=== PATIENT | male | born 1955 | race Caucasian/White ===

== ENCOUNTER → 2019-05-28 | Outpatient (REF) | payer BC ==
[2019-05-28 18:53] LABS: BASO % 0.6 % (0.0-1.0); EOS # 0.2 10^3/uL (0.0-0.50); EOS % 2.8 % (0.0-3.0); HEMATOCRIT 42.6 % (42.0-52.0); HEMOGLOBIN 13.8 g/dl (13.5-17.5); LYMPH # 0.9 10^3/uL (1.5-4.5); LYMPH % 14.4 % (24.0-44.0); MEAN CORPUSCULAR HEMOGLOBIN 32.3 pg (27.0-33.0); MEAN CORPUSCULAR HGB CONC 32.4 g/dl (32.0-36.5); MEAN CORPUSCULAR VOLUME 99.8 fl (80.0-96.0); MONO # 0.7 10^3/uL (0.0-0.8); MONO % 11.3 % (0.0-5.0); NEUTROPHILS # 4.4 10^3/uL (1.8-7.7); NEUTROPHILS % 70.7 % (36.0-66.0); RED BLOOD COUNT 4.27 10^6/uL (4.30-6.10); WHITE BLOOD COUNT 6.2 10^3/uL (4.0-10.0)
[2019-05-31 14:22] LABS: Lyme Disease IgG Ab 18 kDa Ban Present (.); Lyme Disease IgG Ab 23 kDa Ban Present (.); Lyme Disease IgG Ab 28 kDa Ban Absent (.); Lyme Disease IgG Ab 30 kDa Ban Absent (.); Lyme Disease IgG Ab 39 kDa Ban Absent (.); Lyme Disease IgG Ab 41 kDa Ban Present (.); Lyme Disease IgG Ab 45 kDa Ban Absent (.); Lyme Disease IgG Ab 58 kDa Ban Absent (.); Lyme Disease IgG Ab 66 kDa Ban Absent (.); Lyme Disease IgG Ab 93 kDa Ban Present (.); Lyme Disease IgG West Blot Int Negative (.); Lyme Disease IgG/IgM Antibodie 2.94 ISR (0.00-0.90); Lyme Disease IgM Ab 23 kDa Ban Present (.); Lyme Disease IgM Ab 39 kDa Ban Present (.); Lyme Disease IgM Ab 41 kDa Ban Present (.); Lyme Disease IgM Ab Quantitati 9.52 index (0.00-0.79); Lyme Disease IgM West Blot Int Positive (.)
== END ==
LOC: M SFHCLERA 11:56
PROVIDERS: ATTEND Physician Assistant
DX: R21 Rash and other nonspecific skin eruption (principal); R50.9 Fever, unspecified

== ENCOUNTER 2019-12-10 06:42 | Day surgery (SDC) | payer BC ==
[~2019-12-10] VITALS: Ht 172.7 cm; Wt 76.1 kg
[~2019-12-10 06:42] MED LIST: NS 1,000 ML IV ONE
--- NOTE | 2019-12-10 08:40 | ROOR ---
Patient Name: Cristine Victor Procedure Date: 12/10/2019 8:16 AM Date of : 1955 Age: 64 Room: [facility] Gender: Male Note Status: Finalized Procedure: Total Colonoscopy to Cecum + Cold Snare Polypectomy + Hemoclips Indications: Screening for colorectal malignant neoplasm Providers: Aba Baires MD Referring MD: OSCAR AHN JR, MD Requesting Provider: Medicines: Monitored Anesthesia Care Complications: No immediate complications. Procedure: Pre-Anesthesia Assessment: - The heart rate, respiratory rate, oxygen saturations, blood pressure, adequacy of pulmonary ventilation, and response to care were monitored throughout the procedure. The Colonoscope was introduced through the anus and advanced to the cecum, identified by appendiceal orifice and ileocecal valve. The colonoscopy was performed without difficulty. The patient tolerated the procedure well. The quality of the bowel preparation was good. Findings: The perianal and digital rectal examinations were normal. Non-bleeding internal hemorrhoids were found during retroflexion. The hemorrhoids were small and Grade I (internal hemorrhoids that do not prolapse). A small polyp was found at 15 cm proximal to the anus. The polyp was sessile. The polyp was removed with a cold snare. Resection and retrieval were complete. To prevent bleeding after the polypectomy, one hemostatic clip was successfully placed (MR conditional). There was no bleeding at the end of the procedure. Multiple small and large-mouthed diverticula were found in the recto-sigmoid colon, sigmoid colon and descending colon. The exam was otherwise without abnormality on direct and retroflexion views. Impression: - Non-bleeding internal hemorrhoids. - One small polyp at 15 cm proximal to the anus, removed with a cold snare. Resected and retrieved. Clip (MR conditional) was placed. - Diverticulosis in the recto-sigmoid colon, in the sigmoid colon and in the descending colon. - The examination was otherwise normal on direct and retroflexion views. - The exam was otherwise normal to the cecum. Recommendation: - Patient has a contact number available for emergencies. The signs and symptoms of potential delayed complications were discussed with the patient. Return to normal activities tomorrow. Written discharge instructions were provided to the patient. - High fiber diet. - Discharge patient to home. - Continue present medications. - Await pathology results. - Telephone GI clinic for pathology results in 1 week. - Repeat colonoscopy for surveillance based on pathology results. - Return to referring physician. - The findings and recommendations were discussed with the patient's family. Aba Baires MD Aba Baires MD 12/10/2019 8:39:38 AM Electronically signed by Aba Baires MD Number of Addenda: 0 Note Initiated On: 12/10/2019 8:16 AM Estimated Blood Loss: Estimated blood loss: none.
[2019-12-10 08:50] VITALS: BP 143/81
[2019-12-10] MEDS ORDERED: propofoL 500 MG/50 ML VIAL As Ordered ONE (09:02)
[2019-12-10] MEDS ORDERED: LIDOCAINE 2% INJ 100 MG/5 ML SDV (FOR ANES.) As Ordered ONE (09:02)
== END 2019-12-10 09:07 | disposition home or self-care (01) ==
LOC: M OPP 06:42
PROVIDERS: ATTEND Internal Medicine Gastroenterology
DX: Z12.11 Encounter for screening for malignant neoplasm of colon (principal); K64.0 First degree hemorrhoids; D12.6 Benign neoplasm of colon, unspecified; K57.30 Diverticulosis of large intestine without perforation or abscess without bleeding; F17.210 Nicotine dependence, cigarettes, uncomplicated

== ENCOUNTER → 2021-08-28 | Outpatient (CLI) | payer BC | LOC: M LABSMTC 10:02 | PROVIDERS: ATTEND Anesthesiology | DX: Z01.812 Encounter for preprocedural laboratory examination (principal); Z20.822 Contact with and (suspected) exposure to COVID-19 ==

== ENCOUNTER 2021-09-02 08:41 | Day surgery (SDC) | payer MEDICARE ==
[~2021-09-02] VITALS: Ht 175.3 cm; Wt 70.7 kg
[2021-09-02] MEDS ORDERED: LIDOCAINE 2% 100MG/5ML SDV (FOR ANES.) As Ordered ONE (09:50)
[2021-09-02] MEDS ORDERED: propofoL 200 MG/20 ML VIAL As Ordered ONE (09:50)
--- NOTE | 2021-09-02 10:57 | ROOR ---
Patient Name: Cristine Victor Procedure Date: 09/02/2021 10:17 AM Date of : 1955 Age: 66 Room: [facility] Gender: Male Note Status: Finalized Procedure: Total Colonoscopy + Hot Snare+ Biopsy Polypectomy + Clips Indications: High risk colon cancer surveillance: Personal history of colonic polyps, High risk colon cancer surveillance: Personal history of adenoma with villous component, Last colonoscopy: 2019 Providers: Aba Baires MD Referring MD: OSCAR AHN JR, MD Requesting Provider: Medicines: Monitored Anesthesia Care Complications: No immediate complications. Procedure: Pre-Anesthesia Assessment: - The heart rate, respiratory rate, oxygen saturations, blood pressure, adequacy of pulmonary ventilation, and response to care were monitored throughout the procedure. The Colonoscope was introduced through the anus and advanced to the cecum, identified by appendiceal orifice and ileocecal valve. Findings: The perianal and digital rectal examinations were normal. Non-bleeding internal hemorrhoids were found during retroflexion. The hemorrhoids were small and Grade I (internal hemorrhoids that do not prolapse). Scattered small-mouthed diverticula were found in the recto-sigmoid colon and sigmoid colon. A small polyp was found at 15 cm proximal to the anus. The polyp was sessile. The polyp was removed with a jumbo cold forceps. Resection and retrieval were complete. A small polyp was found at 20 cm proximal to the anus. The polyp was sessile. The polyp was removed with a jumbo cold forceps. Resection and retrieval were complete. A small polyp was found at 30 cm proximal to the anus. The polyp was pedunculated. The polyp was removed with a hot snare. Resection and retrieval were complete. To prevent bleeding after the polypectomy, one hemostatic clip was successfully placed. There was no bleeding at the end of the procedure. A small polyp was found in the mid ascending colon. The polyp was sessile. The polyp was removed with a jumbo cold forceps. Resection and retrieval were complete. To prevent bleeding after the polypectomy, one hemostatic clip was successfully placed. There was no bleeding at the end of the procedure. The exam was otherwise without abnormality on direct and retroflexion views. Impression: - Non-bleeding internal hemorrhoids. - Diverticulosis in the recto-sigmoid colon and in the sigmoid colon. - One small polyp at 15 cm proximal to the anus, removed with a jumbo cold forceps. Resected and retrieved. - One small polyp at 20 cm proximal to the anus, removed with a jumbo cold forceps. Resected and retrieved. - One small polyp at 30 cm proximal to the anus, removed with a hot snare. Resected and retrieved. Clip was placed. - One small polyp in the mid ascending colon, removed with a jumbo cold forceps. Resected and retrieved. Clip was placed. - The examination was otherwise normal on direct and retroflexion views. - The exam was otherwise normal to the cecum. Recommendation: - Patient has a contact number available for emergencies. The signs and symptoms of potential delayed complications were discussed with the patient. Return to normal activities tomorrow. Written discharge instructions were provided to the patient. - High fiber diet. - Discharge patient to home. - Continue present medications. - Await pathology results. - Telephone GI clinic for pathology results in 1 week. - Repeat colonoscopy in 3 years for surveillance based on pathology results. - Return to referring physician. - The findings and recommendations were discussed with the patient. Procedure Code(s): --- Professional --- 77799, Colonoscopy, flexible; with removal of tumor(s), polyp(s), or other lesion(s) by snare technique 98434, 59, Colonoscopy, flexible; with biopsy, single or multiple Diagnosis Code(s): --- Professional --- K64.0, First degree hemorrhoids K63.5, Polyp of colon Z86.010, Personal history of colonic polyps K57.30, Diverticulosis of large intestine without perforation or abscess without bleeding CPT copyright 2019 [employer]. All rights reserved. The codes documented in this report are preliminary and upon nurse transitional review may be revised to meet current compliance requirements. Aba Baires MD Aba Baires MD 09/02/2021 10:56:36 AM Electronically signed by Aba Baires MD Number of Addenda: 0 Note Initiated On: 09/02/2021 10:17 AM Estimated Blood Loss: Estimated blood loss: none.
[2021-09-02 11:15] VITALS: BP 151/87
== END 2021-09-02 11:25 | disposition home or self-care (01) ==
LOC: M OPP 08:41
PROVIDERS: ATTEND Internal Medicine Gastroenterology
DX: D12.6 Benign neoplasm of colon, unspecified (principal); Z86.010 Personal history of colon polyps; Z09 Encounter for follow-up examination after completed treatment for conditions other than malignant neoplasm; Z83.71 Family history of colonic polyps; K57.30 Diverticulosis of large intestine without perforation or abscess without bleeding; K64.0 First degree hemorrhoids; F17.220 Nicotine dependence, chewing tobacco, uncomplicated

== ENCOUNTER → 2022-09-02 | Outpatient (CLI) | payer MEDICARE | LOC: M PLAIMG 14:50 | PROVIDERS: ATTEND Physician Assistant | DX: M48.02 Spinal stenosis, cervical region (principal); M50.122 Cervical disc disorder at C5-C6 level with radiculopathy; M99.71 Connective tissue and disc stenosis of intervertebral foramina of cervical region; G95.20 Unspecified cord compression ==

== ENCOUNTER → 2023-03-02 | Outpatient (CLI) | payer MEDICARE | LOC: M PLALAB 09:23 | PROVIDERS: ATTEND Physician Assistant | DX: R97.20 Elevated prostate specific antigen [PSA] (principal) ==

== ENCOUNTER → 2023-07-04 | Outpatient (CLI) | payer MEDICARE ==
[2023-07-04 11:14] LABS: HEMATOCRIT 44.6 % (42.0-52.0); HEMOGLOBIN 14.9 g/dl (13.5-17.5); MEAN CORPUSCULAR HEMOGLOBIN 32.4 pg (27.0-33.0); MEAN CORPUSCULAR HGB CONC 33.4 g/dl (32.0-36.5); PLATELET COUNT, AUTOMATED 252 10^3/uL (150-450); WHITE BLOOD COUNT 4.3 10^3/uL (4.0-10.0)
[2023-07-04 11:36] LABS: ALBUMIN 3.9 G/DL (3.2-5.2); ALKALINE PHOSPHATASE 61 U/L (46-116); ALT/SGPT 18 U/L (7.0-40); AST/SGOT 11 U/L (<34); BILIRUBIN,TOTAL 0.8 MG/DL (0.3-1.2); BLOOD UREA NITROGEN 17 MG/DL (9-23); CALCIUM LEVEL 9.6 MG/DL (8.3-10.6); CARBON DIOXIDE LEVEL 28 MMOL/L (20-31); CHLORIDE LEVEL 107 MMOL/L (98-107); CREATININE FOR GFR 0.76 MG/DL (0.70-1.30); GLOMERULAR FILTRATION RATE > 60.0 (>49); GLUCOSE, FASTING 95 MG/DL (74-106); POTASSIUM SERUM 4.4 MMOL/L (3.5-5.1); SODIUM LEVEL 143 MMOL/L (136-145); TOTAL PROTEIN 6.9 G/DL (5.7-8.2)
== END ==
LOC: M LAB 10:31 → M EKG 10:31
PROVIDERS: ATTEND Orthopaedic Surgery
DX: Z01.818 Encounter for other preprocedural examination (principal); M48.02 Spinal stenosis, cervical region

== ENCOUNTER → 2023-08-26 | Outpatient (CLI) | payer MEDICARE | LOC: M PLALAB 15:25 | PROVIDERS: ATTEND Physician Assistant | DX: R97.20 Elevated prostate specific antigen [PSA] (principal) ==

== ENCOUNTER 2024-08-01 06:36 | Day surgery (SDC) | payer MEDICARE ==
[~2024-08-01] VITALS: Ht 172.7 cm; Wt 69.7 kg
[~2024-08-01 06:36] MED LIST changes: +ALL10TAB3 PO; -NS 1,000 ML IV ONE
[2024-08-01] MEDS ORDERED: [UNRECOGNIZED DRUG - REMARK] PO (07:11)
[2024-08-01] MEDS: NS 1,000 ML IV ONE (07:16)
[2024-08-01] MEDS ORDERED: LIDOCAINE 2% 100MG/5ML SDV (FOR ANES.) As Ordered ONE (07:53)
[2024-08-01] MEDS ORDERED: propofoL 200 MG/20 ML VIAL As Ordered ONE (07:53)
[2024-08-01 08:05] VITALS: TEMP 98
[2024-08-01 08:20] VITALS: BP 142/63; O2SAT 99
== END 2024-08-01 08:28 | disposition home or self-care (01) ==
LOC: M OPP 06:36
PROVIDERS: ATTEND Internal Medicine Gastroenterology
DX: Z12.11 Encounter for screening for malignant neoplasm of colon (principal); Z86.010 Personal history of colon polyps; K57.30 Diverticulosis of large intestine without perforation or abscess without bleeding; F17.220 Nicotine dependence, chewing tobacco, uncomplicated; Z79.52 Long term (current) use of systemic steroids

== ENCOUNTER → 2024-08-28 | Outpatient (CLI) | payer MEDICARE ==
[~2024-08-28] MED LIST changes: +[UNRECOGNIZED DRUG - REMARK] PO
== END ==
LOC: M PLALAB 10:22
PROVIDERS: ATTEND Physician Assistant
DX: R97.20 Elevated prostate specific antigen [PSA] (principal)

== ENCOUNTER → 2025-05-27 | Outpatient (CLI) | payer MEDICARE | LOC: M PLAIMG 14:03 | PROVIDERS: ATTEND Physician Assistant | DX: M47.26 Other spondylosis with radiculopathy, lumbar region (principal); M48.061 Spinal stenosis, lumbar region without neurogenic claudication; M25.78 Osteophyte, vertebrae ==

== ENCOUNTER → 2025-09-04 | Outpatient (CLI) | payer MEDICARE | LOC: M PLALAB 11:22 | PROVIDERS: ATTEND Physician Assistant | DX: Z87.898 Personal history of other specified conditions (principal); R97.20 Elevated prostate specific antigen [PSA] ==